=== PATIENT | male | born 1975 | race Hispanic/Latino ===

== ENCOUNTER 2020-02-17 03:15 | Emergency (ER) | payer SELFPAY ==
[2020-02-17 03:54] VITALS: BP 104/70
[2020-02-17] MEDS ORDERED: ACETAMINOPHEN 500 MG TAB PO ONE (04:35)
[2020-02-17] MEDS ORDERED: IBUPROFEN 600 MG TAB PO ONE (04:36)
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
== END 2020-02-17 04:42 | disposition home or self-care (01) ==
LOC: ED 03:15
DX: M62.830 Muscle spasm of back (principal); M54.6 Pain in thoracic spine; F43.10 Post-traumatic stress disorder, unspecified; F31.9 Bipolar disorder, unspecified; F41.9 Anxiety disorder, unspecified; F17.200 Nicotine dependence, unspecified, uncomplicated; F12.10 Cannabis abuse, uncomplicated; F14.10 Cocaine abuse, uncomplicated; Z98.890 Other specified postprocedural states; Y04.2XXA Assault by strike against or bumped into by another person, initial encounter; Y93.89 Activity, other specified; Y92.009 Unspecified place in unspecified non-institutional (private) residence as the place of occurrence of the external cause; Y99.8 Other external cause status
CPT/HCPCS: 99283